=== PATIENT | female | born 1970 | race Caucasian/White ===

== ENCOUNTER 2020-02-11 11:42 | Emergency (ER) | payer OTHER, SELFPAY ==
--- NOTE | ~2020-02-11 | XR_ITS ---
EXAMINATION: XR foot LT min 3V, XR ankle LT min 3V DATE: 02/11/2020 12:52 INDICATION: Medial left foot pain post fall TECHNIQUE: 1. Anteroposterior, mortise, additional oblique and lateral view of the left ankle were obtained. 2. Dorsoplantar, two oblique and lateral views of the left foot were obtained. COMPARISON: 02/12/2009 FINDINGS: Alignment of the foot and ankle is normal. Small flake-like essentially nondisplaced dorsal capsular avulsion fracture of the navicula. No other fractures identified. Small chronic either degenerative o r heterotopic ossicle along the anterior margin of the tibial plafond and. No ankle joint effusion. M ild polyarticular osteoarthritis at the first metatarsophalangeal and several tarsal metatarsal and i nterphalangeal joints. Moderate-sized plantar calcaneal spur. Mild soft tissue swelling with increase d density dorsal to the talonavicular articulation. IMPRESSION: 1. Essentially nondisplaced small flake-like dorsal capsular avulsion fracture at the navicula. Reviewed, dictated and finalized at location A. IMPRESSION: 1. Essentially nondisplaced small flake-like dorsal capsular avulsion fracture at the navicula.
[2020-02-11 12:02] VITALS: BP 133/84; PULSE 94; RESP 16; TEMP 36.9; O2SAT 98
--- NOTE | 2020-02-11 12:20 | ED.LOWEXIN ---
HPI - Extremity Injury (Lower) General Chief Complaint: Extremity Injury, Lower Stated Complaint: Injury Left knee/ankle Time Seen by Provider: 02/11/20 12:47 Source: patient and RN notes reviewed Mode of arrival: ambulatory Limitations: no limitations History of Present Illness HPI Narrative: 49-year-old female presents with concern for left knee injury, ankle injury, foot injury. Reports prior to arrival she was carrying a basket of laundry down stairs when she missed a step and fell causing her injury. She denies any numbness, weakness. Reports pain is minimal at rest, increases to an 8 out of 10 with weightbearing. MD complaint: knee injury and ankle injury Related Data Home Medications Medication Instructions Recorded Confirmed Tumeric 02/11/20 Vitamin D 10,000 02/11/20 empagliflozin-metformin [Synjardy PO 02/11/20 XR] rosuvastatin mg 02/11/20 sumatriptan succinate mg PO 02/11/20 tamoxifen mg 02/11/20 Allergies Allergy/AdvReac Type Severity Reaction Status Date / Time benzonatate Allergy Mild Rash Verified 02/11/20 12:27 Review of Systems Review of Systems: Narrative: CONSTITUTIONAL: Denies malaise, chills, sweats, or fever. RESPIRATORY: Denies dyspnea. SKIN: Reports ankle swelling MUSCULOSKELETAL: Reports left knee pain, left foot pain. Reports minimal pain at rest, pain 8/10 with weightbearing NEUROLOGIC: Denies numbness, weakness. All systems reviewed & are unremarkable except as noted in HPI and below PMFSH Family History Family History (Updated 06/21/16 @ 23:19 by DOCTOR UNKNOWN) Mother Family history of diabetes mellitus in first degree relative Other Cerebrovascular accident Family history of coronary artery disease Family history of malignant neoplasm of male breast Family history of pancreatic cancer Hypertension Social History Social History Smoking status: Never smoker Alcohol intake: current Comments At time of signature, agree with nursing past medical, surgical, social and family history. There is no relevant family history pertinent to the presenting complaint Exam Narrative: Exam Narrative: GENERAL: Well-appearing, well-nourished, and in no acute distress. HEAD: Normocephalic, atraumatic. EYES: PERRLA, conjunctivae clear NECK: Supple. CHEST: Speaks in full sentences. No respiratory distress. HEART: Regular rate and rhythm. Normal and equal peripheral pulses. EXTREMITIES: Left knee, ankle, foot, digits of foot have normal strength and sensation, normal range of motion. Moderate lateral left ankle edema with small amount of ecchymosis. 5/5 strength with knee, ankle, digit flexion and extension. Normal sensation with sensitivity to light touch and pain. No open wounds, no skin tenting, no devitalized tissue or atrophy, no trophic changes, no ecchymosis, no obvious deformity, alignment normal, no point tenderness, nearby joints and structures intact. Distal pulses palpable and equal bilaterally, skin warm, dry, pink. Capillary refill less than 3 seconds. SKIN: Warm, dry, no rash. NEURO: Alert and oriented x3. PSYCH: Normal mood and affect Course Course Emergency Course: Patient is aware of diagnosis, understands and agrees to treatment plan. Anticipatory guidance given. Patient agrees to follow-up as directed and is aware of reasons to seek care at the emergency department. Portions of this record may have been created with voice recognition software Vital Signs Vital signs: Vital Signs Temperature 98.5 F 02/11/20 12:02 Pulse Rate 94 02/11/20 12:02 Respiratory Rate 16 02/11/20 12:02 Blood Pressure 133/84 02/11/20 12:02 Pulse Oximetry 98 02/11/20 12:02 Temperature 98.5 F 02/11/20 12:02 Pulse Rate 94 02/11/20 12:02 Respiratory Rate 16 02/11/20 12:02 Blood Pressure 133/84 02/11/20 12:02 Pulse Oximetry 98 02/11/20 12:02 Reviewed. Patient has been instructed to follow up with her primary care provider within the next
== END 2020-02-11 13:28 | disposition home or self-care (01) ==
PROVIDERS: Emergency Provider Nurse Practitioner; PCP Family Medicine
DX: S92.255A Nondisplaced fracture of navicular [scaphoid] of left foot, initial encounter for closed fracture (principal); W10.9XXA Fall (on) (from) unspecified stairs and steps, initial encounter; E78.00 Pure hypercholesterolemia, unspecified; E11.9 Type 2 diabetes mellitus without complications; Z85.3 Personal history of malignant neoplasm of breast
CPT/HCPCS: 73610; 73630; 99214; G0463

== ENCOUNTER 2020-06-26 07:52 | Outpatient (CLI) | payer OTHER, SELFPAY ==
--- NOTE | ~2020-06-26 | MM_ITS ---
EXAMINATION: MM screening katrina BI w raul HISTORY: Screening TECHNIQUE: Craniocaudal and mediolateral oblique 3-D tomosynthesis images were obtained and synthetic 2-D images were generated. CAD analysis was submitted and interpreted. COMPARISON: Comparison to multiple prior studies sequentially, with oldest reviewed study dated 07/2015. BREAST PARENCHYMAL COMPOSITION: Automated exposure control and iterative reconstruction technique wer e employed. FINDINGS: Stable architectural distortion lower outer quadrant of the left breast consistent with pre vious lumpectomy site. There is no evidence of suspicious mass, calcification, or architectural disto rtion to suggest malignancy in either breast. There has been no suspicious interval change. IMPRESSION: 1. No mammographic evidence of malignancy. 2. Recommend routine screening mammography in one year. BI-RADS Category 1: Negative Reviewed, dictated and finalized at location A.
== END 2020-06-26 07:53 | disposition home or self-care (01) ==
LOC: ANHIMG 07:55
PROVIDERS: PCP Family Medicine; Visit Provider Internal Medicine Medical Oncology
DX: Z12.31 Encounter for screening mammogram for malignant neoplasm of breast (principal)
CPT/HCPCS: 77063; 77067

== ENCOUNTER 2020-07-26 17:23 | Emergency (ER) | payer OTHER, SELFPAY ==
--- NOTE | ~2020-07-26 | XR_ITS ---
XR foot RT min 3V DATE: 07/26/2020 17:59 INDICATION: Right foot injury. Pain, particularly fifth toe. TECHNIQUE: 4 views COMPARISON: None FINDINGS: Plantar calcaneal enthesopathy. There is a linear virtually nondisplaced oblique fracture of the shaft of the proximal pharynx of the fifth digit. There is osteoarthritic change at the tarsal and tarsometatarsal and first metatarsophalangeal joints . IMPRESSION: Virtually nondisplaced oblique fracture of the shaft of the proximal phalanx of the fifth digit Polyarticular osteoarthritis Plantar calcaneal enthesopathy Reviewed, dictated and finalized at location A. IMPRESSION: Virtually nondisplaced oblique fracture of the shaft of the proxima l phalanx of the fifth digit Polyarticular osteoarthritis Plantar calcaneal enthesopathy
[2020-07-26 17:48] VITALS: BP 147/78; PULSE 106; RESP 18; TEMP 36.9; O2SAT 99
--- NOTE | 2020-07-26 18:07 | ED.LOWEXIN ---
HPI - Extremity Injury (Lower) General Chief Complaint: Extremity Injury, Lower Stated Complaint: right foot pinky toe History of Present Illness HPI Narrative: This is a 50-year-old female comes in complaining of right pinky toe pain. Approximately around 215 today patient was leaving the house she has a water cooler and she kicked it. Patient states that it feels like glass in her foot when she walks on it. When she is just sitting there patient denies any pain Related Data Home Medications Medication Instructions Recorded Confirmed Tumeric 1 tab-cap DAILY 02/11/20 07/26/20 Vitamin D 10,000 unit DAILY 02/11/20 07/26/20 empagliflozin-metformin [Synjardy 1 tablet PO DAILY 02/11/20 07/26/20 XR] rosuvastatin 20 mg DAILY 02/11/20 07/26/20 tamoxifen 20 mg DAILY 02/11/20 07/26/20 Allergies Allergy/AdvReac Type Severity Reaction Status Date / Time benzonatate Allergy Mild Rash Verified 07/26/20 17:41 Review of Systems Review of Systems: Narrative: CONSTITUTIONAL: Denies fever, chills, or sweats. EYES: Denies visual changes, redness, or discharge. ENT: Denies rhinorrhea, congestion, sore throat, or otalgia. CARDIOVASCULAR:Denies chest pain, palpitations, or edema. RESPIRATORY: Denies cough or dyspnea. GASTROINTESTINAL: Denies abdominal pain, nausea, vomiting, or diarrhea. GENITOURINARY: Denies dysuria or hematuria. SKIN:[Denies rash or itching. MUSCULOSKELETAL:Denies back pain, joint pain, or myalgia. Right foot and toe pain NEUROLOGIC: Denies headache, numbness, or weakness. PSYCHIATRIC:Denies anxiety or depression PMFSH Social History Social History Smoking status: Never smoker Alcohol intake: current Gender identity (if verbalized by the patient): Female Comments At time as signature, I have reviewed and agree with nursing past medical, social, surgical and family history. Please see nursing chart for further information. There is no relevant family history pertinent to the presenting complaint. Exam Narrative: Exam Narrative: GENERAL:Well-appearing, well-nourished, and in no acute distress. HEAD:Normocephalic, atraumatic. EYES: PERRLA and EOMI. ENT: Nares clear, no rhinorrhea or epistaxis. Mucous membranes moist. NECK: Supple. CHEST: Clear to auscultation. No respiratory distress. HEART: Regular rate and rhythm. No murmur heard. Normal peripheral pulses. ABDOMEN: Soft, nontender, nondistended, normal active bowel sounds. EXTREMITIES: Decreased range of motion due to pain. Slight foot edema erythema on the toe with some bruising starting. SKIN: Warm, dry, no rash. NEURO: No focal deficits. Alert and oriented x3. Course Course Emergency Course: X-ray reporting virtually nondisplaced oblique fracture of the shaft of the proximal phalanx of the fifth digit, polyarticular osteoarthritis, plantar calcaneal enthesopathy Vital Signs Vital signs: Vital Signs Temperature 98.5 F 07/26/20 17:48 Pulse Rate 106 H 07/26/20 17:48 Respiratory Rate 18 07/26/20 17:48 Blood Pressure 147/78 H 07/26/20 17:48 Pulse Oximetry 99 07/26/20 17:48 Temperature 98.5 F 07/26/20 17:48 Pulse Rate 106 H 07/26/20 17:48 Respiratory Rate 18 07/26/20 17:48 Blood Pressure 147/78 H 07/26/20 17:48 Pulse Oximetry 99 07/26/20 17:48 MDM - Extremity Injury (Lower) Differential Diagnosis Differential diagnosis: Likely acute internal derangement of knee, fracture of toe and ankle fracture Discharge Plan Discharge Clinical Impression: Fracture of toe Qualifiers: Encounter type: initial encounter Toe: lesser toe Fracture type: closed Phalanx: proximal Fracture alignment: nondisplaced Laterality: right Qualified Code(s): S92.514A - Nondisplaced fracture of proximal phalanx of right lesser toe(s), initial encounter for closed fracture Patient Disposition: Home, Self-Care Condition: Stable Instructions: Antibiotic Form, Toe Fracture (ED)
== END 2020-07-26 18:34 | disposition home or self-care (01) ==
PROVIDERS: Emergency Provider Nurse Practitioner Family; PCP Family Medicine
DX: S92.514A Nondisplaced fracture of proximal phalanx of right lesser toe(s), initial encounter for closed fracture (principal); W22.8XXA Striking against or struck by other objects, initial encounter; E78.00 Pure hypercholesterolemia, unspecified; E11.9 Type 2 diabetes mellitus without complications
CPT/HCPCS: 73630; 99214; G0463

== ENCOUNTER 2021-06-27 12:37 | Outpatient (CLI) | payer OTHER, SELFPAY ==
--- NOTE | ~2021-06-27 | CT_ITS ---
EXAMINATION: CT abdomen pelvis wo con DATE: 06/27/2021 12:53 INDICATION: Calculus of kidney, left flank pain, history of breast cancer TECHNIQUE: Computed tomography (CT) of the abdomen and pelvis was performed without intravenous contr ast. The dose-length product (DLP) was 767.58 mGy-cm. Automated exposure control and iterative recons truction technique were employed. COMPARISON: 04/07/2018 FINDINGS: The lung bases are clear. The heart size is normal. Changes in the left breast are consiste nt with history of left breast cancer treatment. Punctate calcifications in an otherwise normal splee n likely represent healed granulomatous disease. The liver, gallbladder, and adrenal glands are daysi l. A punctate calcification in the head of the pancreas is consistent with chronic pancreatitis. The right kidney is unremarkable. There is a 12 mm stone in the left renal pelvis with mild left hydronep hrosis. No pathologically enlarged abdominal or pelvic lymph nodes are identified. There is no free i ntraperitoneal gas or evidence of bowel obstruction. The appendix is normal. There is mild lumbar spo ndylosis. IMPRESSION: 1. 12 mm stone in the left renal pelvis with mild left hydronephrosis. Reviewed, dictated and finalized at location A.
== END 2021-06-27 12:38 ==
PROVIDERS: PCP Family Medicine; Visit Provider Family Medicine
DX: N20.0 Calculus of kidney (principal)
CPT/HCPCS: 74176

== ENCOUNTER 2021-10-04 14:15 | Outpatient (CLI) | payer OTHER, SELFPAY ==
--- NOTE | ~2021-10-04 | MM_ITS ---
EXAMINATION: MM screening katrina BI w raul HISTORY: Screening mammogram TECHNIQUE: Craniocaudal and mediolateral oblique 3-D tomosynthesis images were obtained and synthetic 2-D images were generated. CAD analysis was submitted and interpreted. COMPARISON: , , 08/29/2017 bilateral screening mammogram examinations BREAST PARENCHYMAL COMPOSITION: There are scattered areas of fibroglandular density. FINDINGS: There is stable chronic asymmetric density and spiculation and amorphous calcifications in the lower outer left breast, likely due to postoperative scarring from left partial mastectomy for br east cancer Otherwise there is no evidence of suspicious mass, calcification, or architectural distortion to sugg est malignancy in either breast. There has been no suspicious interval change. IMPRESSION: 1. Status post left partial mastectomy for breast cancer. No mammographic evidence of malignancy. 2. Recommend routine screening mammography in one year. BI-RADS Category 2: Benign finding(s). Reviewed, dictated and finalized at location A. NT SPECIALIST IMPRESSION: 1. Status post left partial mastectomy for breast cancer. No mammographic evide nce of malignancy. 2. Recommend routine screening mammography in one year. BI-RADS Category 2: Benign finding(s).
== END 2021-10-04 14:16 | disposition home or self-care (01) ==
LOC: ANHIMG 14:18
PROVIDERS: PCP Family Medicine; Visit Provider Family Medicine
DX: Z12.31 Encounter for screening mammogram for malignant neoplasm of breast (principal)
CPT/HCPCS: 77063; 77067

== ENCOUNTER 2021-12-20 00:33 | Day surgery (SDC) | payer OTHER, SELFPAY ==
[2021-12-20 06:40] VITALS: BP 141/77; PULSE 93; RESP 18; TEMP 36.1; O2SAT 99; BMI 35.2
[2021-12-20] MEDS: LACTATED RINGERS 1,000 ML 150 ML IV CONT (06:55)
[2021-12-20 06:57] LABS: Glucose Point of Care 123 mg/dl (65-105)
--- NOTE | 2021-12-20 07:17 | WPDANESEPPF ---
Anes - Initial Pre Proc Eval Procedure: Operation Date: 12/20/21 07:30 Proposed Procedures p Screening Colonoscopy - Bandar Vigil MD Date/Time: 12/20/21 07:17 Surgeon: Bandar Vigil MD Pre Op Diagnosis: neoplasm screening Patient Data Age: 51 Gender: F Height: 1.68 m Weight: 99 kg Last Vital Signs Temp 97 F L 12/20/21 06:40 Pulse 93 12/20/21 06:40 Resp 18 12/20/21 06:40 BP 141/77 H 12/20/21 06:40 Pulse Ox 99 12/20/21 06:40 Allergies Allergy/AdvReac Type Severity Reaction Status Date / Time benzonatate Allergy Mild Rash Verified 12/20/21 06:38 Home Medications Medication Instructions Recorded Confirmed Type Tumeric 1 tab-cap DAILY 02/11/20 12/07/21 History aspirin 81 mg tablet,delayed 81 mg PO DAILY 06/19/21 12/07/21 History release metformin 1,000 mg tablet 1,000 mg PO BID #270 tablet 11/20/21 12/07/21 Rx rosuvastatin 20 mg tablet 20 mg PO DAILY #90 tablet 11/20/21 12/07/21 Rx semaglutide 1 mg/dose (2 mg/1.5 1 mg SUBCUT WEEKLY #9 ml 12/04/21 12/07/21 Rx mL) subcutaneous pen injector sumatriptan succinate 100 mg tablet 100 mg PO ONCE PRN #9 tablet 12/04/21 12/07/21 Rx Laboratory Tests 12/20/21 06:54 POC Capillary Glucose 123 mg/dl H mg/dl (65-105) Patient hx anesthesia problems: none Family hx anesthesia problems: none Results Review: All pre-operative results and documents have been reviewed as part of the pre-operative evaluation. [facility] Past Medical History Medical History (Updated 10/04/21 @ 08:21 by Marcus Malik MD) Anemia Avulsion fracture of navicular bone of foot BMI 33.0-33.9,adult BMI 38.0-38.9,adult BMI over 35 Breast cancer Diabetes type 2, controlled Low vitamin D level MCL sprain of right knee Onychomycosis Primary osteoarthritis of both knees Renal calculi Screen for colon cancer Screening breast examination Vagina, candidiasis Family History Family History Mother Family history of diabetes mellitus in first degree relative Other Cerebrovascular accident Family history of coronary artery disease Family history of malignant neoplasm of male breast Family history of pancreatic cancer Hypertension Social History Social History Smoking status: Former smoker Tobacco type: cigarettes Alcohol intake: current Alcohol use details: Occasional use Substance use: never Substance use type: does not use Living arrangements: with family Gender identity (if verbalized by the patient): Female Spiritual care concerns: No Anes - Eval Final PreProcedure Day of Procedure 12/20/21 07:17 Patient weight: obese Heart: regular rate and rhythm Lungs: clear to auscultation Airway: Mallampati scale class II Neurological: alert and oriented Last oral intake: >/= 8 hours ASA classification: III Emergent: no Anesthetic plan: proceed Anesthesia type and monitoring: general GIVS and standard monitoring Results Review: All pre-operative results and documents have been reviewed as part of the pre-operative evaluation. Informed Consent: The patient's anesthetic plan and its attendant risks and benefits were discussed with the patient/family/POA. Questions were solicited and answers provided to the satisfaction of the patient/family/POA.
--- NOTE | 2021-12-20 07:48 | WPDGICN ---
Assessment and Plan Assessment and plan (1) Screen for colon cancer: Code(s): Z12.11 - Encounter for screening for malignant neoplasm of colon Status: Acute Assessment and Plan: Patient presents for screening colonoscopy. Appears to be at average risk for colon polyps. GI Consult Note Consult date/time: 12/20/21 07:48 HPI: Scarlett Celeste is a 51 year old female Presents for screening colonoscopy. Patient's current weight appetite bowel movements are normal. She denies abdominal pain. She has had no bleeding. Family history is noncontributory. Patient presents today for neoplasia screening. Review of Systems Review of Systems: All systems reviewed & are unremarkable except as noted in HPI and below PMFSH Past Medical History Medical History (Updated 10/04/21 @ 08:21 by Marcus Malik MD) Anemia Avulsion fracture of navicular bone of foot BMI 33.0-33.9,adult BMI 38.0-38.9,adult BMI over 35 Breast cancer Diabetes type 2, controlled Low vitamin D level MCL sprain of right knee Onychomycosis Primary osteoarthritis of both knees Renal calculi Screen for colon cancer Screening breast examination Vagina, candidiasis Family History Family History Mother Family history of diabetes mellitus in first degree relative Other Cerebrovascular accident Family history of coronary artery disease Family history of malignant neoplasm of male breast Family history of pancreatic cancer Hypertension Social History Social History Smoking status: Former smoker Tobacco type: cigarettes Alcohol intake: current Alcohol use details: Occasional use Substance use: never Substance use type: does not use Living arrangements: with family Gender identity (if verbalized by the patient): Female Spiritual care concerns: No Meds Home Medications and Allergies Home Medications Medication Instructions Recorded Confirmed Type Tumeric 1 tab-cap DAILY 02/11/20 12/07/21 History aspirin 81 mg tablet,delayed 81 mg PO DAILY 06/19/21 12/07/21 History release metformin 1,000 mg tablet 1,000 mg PO BID #270 tablet 11/20/21 12/07/21 Rx rosuvastatin 20 mg tablet 20 mg PO DAILY #90 tablet 11/20/21 12/07/21 Rx semaglutide 1 mg/dose (2 mg/1.5 1 mg SUBCUT WEEKLY #9 ml 12/04/21 12/07/21 Rx mL) subcutaneous pen injector sumatriptan succinate 100 mg tablet 100 mg PO ONCE PRN #9 tablet 12/04/21 12/07/21 Rx Allergies Allergy/AdvReac Type Severity Reaction Status Date / Time benzonatate Allergy Mild Rash Verified 12/20/21 06:38 Vital Signs Vital Signs - 24 hr 12/20/21 06:40 Temperature 97 F L Pulse Rate 93 Respiratory Rate 18 Blood Pressure 141/77 H Pulse Oximetry 99 Exam Narrative: Physical exam reveals patient be alert. Vital signs stable. HEENT exam is unremarkable. Patient is anicteric. Lungs are clear to auscultation and percussion. Heart is without murmur or extra sounds. Abdominal exam bowel sounds are present soft nontender with no organomegaly. Digital external rectal exam is normal.
[2021-12-20 07:50] VITALS: BP 95/54; PULSE 85; RESP 23; O2SAT 97
[2021-12-20 08:00] VITALS: BP 102/64; PULSE 72; RESP 17; O2SAT 99
[2021-12-20 08:10] VITALS: BP 107/76; PULSE 71; RESP 16; O2SAT 99
== END 2021-12-20 08:17 | disposition home or self-care (01) ==
PROVIDERS: PCP Family Medicine; Visit Provider Internal Medicine Gastroenterology
PROC: 0DJD8ZZ Inspection of Lower Intestinal Tract, Via Natural or Artificial Opening Endoscopic (ICD-10-PCS; CPT 45378; principal; 2021-12-20 07:30)
DX: Z12.11 Encounter for screening for malignant neoplasm of colon (principal); D12.5 Benign neoplasm of sigmoid colon; D64.9 Anemia, unspecified; E11.9 Type 2 diabetes mellitus without complications; Z87.891 Personal history of nicotine dependence; E66.9 Obesity, unspecified; Z68.35 Body mass index [BMI] 35.0-35.9, adult; Z79.84 Long term (current) use of oral hypoglycemic drugs; Z79.82 Long term (current) use of aspirin; Z79.899 Other long term (current) drug therapy
CPT/HCPCS: 45385; 82948; 88305; J2704; J7120

== ENCOUNTER 2022-02-09 10:24 | Outpatient (CLI) | payer OTHER, SELFPAY ==
--- NOTE | ~2022-02-09 | MR_ITS ---
EXAMINATION: MR brain IAC wo con EXAM DATE: 02/09/2022 11:26 INDICATION: keisha hearing loss x20yrs - right side worse, no trauma. TECHNIQUE: Multi-sequential, multiplanar MR images of the brain, brainstem, internal auditory canals were obtained without contrast. Whole brain sagittal T1, axial diffusion, gradient echo (T2*), T1, T 2, FLAIR sequences obtained. High resolution coronal 3-D FIESTA, coronal T1 FSE, axial T1 FSPGR of t he internal auditory canals. There is no prior study for comparison. FINDINGS: No evidence of mastoid or middle ear opacification. The 7th/8th cranial nerve complexes a re symmetric, normal in course and caliber. No cerebellopontine angle masses. Posterior fossa unrem arkable. There are no areas of restricted diffusion to suggest acute infarction. There is no acute hemorrhage seen on the T2*, a hemosiderin sensitive sequence. No intraparenchymal brain mass. The ventricles a re normal in size. There are no extra-axial collections. Flow voids are seen in the cerebral arteri es on the T2-weighted sequences consistent with their expected patency. The orbits are unremarkable. Soft tissue is unremarkable. IMPRESSION: Unremarkable brain/IAC examination.. Reviewed, dictated and finalized at location G.
== END 2022-02-09 10:25 ==
PROVIDERS: PCP Family Medicine; Visit Provider Family Medicine
DX: H91.93 Unspecified hearing loss, bilateral (principal)
CPT/HCPCS: 70551

== ENCOUNTER 2022-07-05 00:43 | Day surgery (SDC) | payer OTHER, SELFPAY ==
[2022-06-27 15:17] VITALS: BMI 37.3
--- NOTE | 2022-06-27 15:24 | PC.NURSE ---
Report to the Outpatient Waiting Room, entrance under the green pavilion located off [facility], at time _0815 on date __07/05/22. OR Time: ___1015_. - You and your visitor will be asked a series of questions to screen for COVID 19 for your protection. - Only one visitor is allowed at this time. - The patient visitor is requested to leave or wait in car when not with patient. - A mask is required within the hospital. Patients may have clear liquids (water, carbonated beverages, clear teas, apple juice) until 3 hours prior to surgery with a maximum of 20 ounces. - No food from midnight until time of surgery - Infants may have breast milk until 4 hours before surgery, infant formula 6 hours prior to surgery. - Children will be allowed to drink immediately following surgery. If applicable, please bring a bottle or sippy cup to assist with drinking. Juice, water, soda, and popsicles are readily available. For infants on formula, please bring formula the day of surgery. Pacifiers are allowed. Take the following medications with a SIP of water the morning of surgery: ___NONE Medications to discontinue per physician VITAMINS AND SUPPLIMENTS, ASK MD ABOUT ASPIRIN Date to take last dose Please no make-up, nail swedish, hairspray, perfume, deodorant, or body powder the day of surgery. No jewelry (including any body piercings) or valuables the day of surgery, leave them at home. Please take a shower or bath the night before, or the morning of, surgery with an antibacterial soap. Wear comfortable, loose fitting clothing. Children are encouraged to wear pajamas. - Jewelry must be removed prior to entering the operating room. Rings and piercings that are not removed may be cut off. - The hospital will not accept responsibility for valuables. - Please leave all valuables, including medications, at home the day of surgery. If you are going home after surgery, a licensed power screwdriver operator must drive you home. - NO public transportation without another adult. - We recommend that an adult stay with you for 24 hours following discharge. - We also recommend that you do not drive, make important decision, drink alcoholic beverages, or take any drugs that were not prescribed by your health care provider for at least 24 hours after your discharge time. For Pediatric surgeries, we recommend two adults accompany the child home (only one inside the building at this time). Follow any additional instructions given to you from your surgeon. If you or anyone in your household have experienced Covid symptoms in the past week, please notify your surgeon or the nurse liaison at the phone number below for possible testing. Telephone instructions given to ___PATIENT___and asked if any additional questions and then verbalized understanding. Patient advised to call surgeon office or pre surgery nurse liaison [phone] if any additional questions.
--- NOTE | 2022-07-03 07:05 | P.HP_ITS ---
H&P: HPI History of Present Illness Date/Time: 07/03/22 07:05 Chief Complaint: postmenopausal bleeding Narrative: some 52-year-old female not had a period for some time who experience vaginal bleeding. Risks and benefits of hysteroscopy and dilatation curettage reviewed in great detail. She agrees to proceed. She read the [employer] handout entitled hysteroscopy as well as dilatation and curettage [facility] Past Medical History Medical History Anemia Avulsion fracture of navicular bone of foot BMI 33.0-33.9,adult BMI 38.0-38.9,adult BMI over 35 Breast cancer Diabetes type 2, controlled Low vitamin D level MCL sprain of right knee Onychomycosis Primary osteoarthritis of both knees Renal calculi Screen for colon cancer Screening breast examination Vagina, candidiasis Family History Family History Mother Family history of diabetes mellitus in first degree relative Other Cerebrovascular accident Family history of coronary artery disease Family history of malignant neoplasm of male breast Family history of pancreatic cancer Hypertension Social History Social History Smoking packs per day: 1 Smoking cigarettes per day: 20.0 Years smoked: 15 Smoking pack-years: 15.00 Smoking status: Former smoker Tobacco type: cigarettes Alcohol intake: current Alcohol use details: 2-3 PER MONTH Substance use: never Substance use type: does not use Last use: 2009 Gender identity (if verbalized by the patient): Female Spiritual care concerns: No Meds Home Medications and Allergies Home Medications Medication Instructions Recorded Confirmed Type Tumeric 1 tab-cap DAILY 02/11/20 06/27/22 History aspirin 81 mg tablet,delayed 81 mg PO DAILY 06/19/21 06/27/22 History release (Adult Aspirin Regimen) rosuvastatin 20 mg tablet 20 mg PO DAILY #90 tabs 11/20/21 06/27/22 Rx semaglutide 1 mg/dose (2 mg/1.5 1 mg (0.75 mL) subcut WEEKLY #9 mL 03/07/22 06/27/22 Rx mL) subcutaneous pen injector cholecalciferol (vitamin D3) 25 25 mcg PO DAILY 05/13/22 06/27/22 History mcg (1,000 unit) capsule metformin 1,000 mg tablet 1,000 mg PO BID #270 tabs 06/02/22 06/27/22 Rx biotin 5 mg capsule 5 mg PO DAILY 06/27/22 06/27/22 History sumatriptan succinate 100 mg tablet 50 mg PO ONCE PRN migraine headache 06/27/22 06/27/22 History Allergies Allergy/AdvReac Type Severity Reaction Status Date / Time benzonatate Allergy Mild Rash Verified 06/27/22 15:13 Assessment and Plan Assessment and plan (1) Postmenopausal bleeding: Code(s): N95.0 - Postmenopausal bleeding Status: Acute Plan hysteroscopy/ dilatation and curettage
--- NOTE | 2022-07-05 06:30 | WPDHPUPDATE1 ---
History and Physical Update Update Date/Time: 07/05/22 06:30 History and Physical has been reviewed, including an updated exam of the patient. There are NO changes in the patient's condition. Risks, benefits, and alternatives have been discussed and questions answered. Patient agrees to proceed with procedure.
[2022-07-05] MEDS: ACETAMINOPHEN 500 MG TABLET 1000 MG PO (08:31)
[2022-07-05 08:41] VITALS: BP 131/73; PULSE 80; RESP 16; TEMP 36.6; O2SAT 98
[2022-07-05] MEDS: LACTATED RINGERS 1,000 ML 30 ML IV CONT (09:06)
[2022-07-05 09:10] LABS: Glucose Point of Care 119 mg/dl (65-105)
--- NOTE | 2022-07-05 09:36 | WPDANESEPPF ---
Anes - Initial Pre Proc Eval Procedure: Operation Date: 07/05/22 10:15 Proposed Procedures p Hysteroscopy Dilation and Curettage - Larry Garcia MD Date/Time: 07/05/22 09:36 Surgeon: Larry Garcia MD Pre Op Diagnosis: post menopausal bleeding, hx of breast cancer Patient Data Age: 52 Gender: F Height: 1.68 m Weight: 103.3 kg Last Vital Signs Temp 36.6 C 07/05/22 08:41 Pulse 80 07/05/22 08:41 Resp 16 07/05/22 08:41 BP 131/73 07/05/22 08:41 Pulse Ox 98 07/05/22 08:41 O2 Del Method Room Air 07/05/22 08:41 Allergies Allergy/AdvReac Type Severity Reaction Status Date / Time adhesive tape Allergy Mild Blister Verified 07/05/22 08:26 benzonatate Allergy Mild Rash Verified 07/05/22 08:26 povidone-iodine Allergy Mild Itching Verified 07/05/22 08:26 [From Betadine] Home Medications Medication Instructions Recorded Confirmed Type Tumeric 1 tab-cap DAILY 02/11/20 07/05/22 History aspirin 81 mg tablet,delayed 81 mg PO DAILY 06/19/21 07/05/22 History release (Adult Aspirin Regimen) rosuvastatin 20 mg tablet 20 mg PO DAILY #90 tabs 11/20/21 07/05/22 Rx semaglutide 1 mg/dose (2 mg/1.5 1 mg (0.75 mL) subcut WEEKLY #9 mL 03/07/22 07/05/22 Rx mL) subcutaneous pen injector cholecalciferol (vitamin D3) 25 25 mcg PO DAILY 05/13/22 07/05/22 History mcg (1,000 unit) capsule metformin 1,000 mg tablet 1,000 mg PO BID #270 tabs 06/02/22 07/05/22 Rx biotin 5 mg capsule 5 mg PO DAILY 06/27/22 07/05/22 History sumatriptan succinate 100 mg tablet 50 mg PO ONCE PRN migraine headache 06/27/22 07/05/22 History hydrocodone 5 mg-acetaminophen 325 1 tablet PO Q4H PRN pain #14 tabs 07/05/22 Rx mg tablet Laboratory Tests 07/05/22 09:08 POC Capillary Glucose 119 mg/dl H mg/dl (65-105) Patient hx anesthesia problems: none Family hx anesthesia problems: none Results Review: All pre-operative results and documents have been reviewed as part of the pre-operative evaluation. [facility] Past Medical History Medical History Anemia Avulsion fracture of navicular bone of foot BMI 33.0-33.9,adult BMI 38.0-38.9,adult BMI over 35 Breast cancer Diabetes type 2, controlled Low vitamin D level MCL sprain of right knee Onychomycosis Primary osteoarthritis of both knees Renal calculi Screen for colon cancer Screening breast examination Vagina, candidiasis Family History Family History Mother Family history of diabetes mellitus in first degree relative Other Cerebrovascular accident Family history of coronary artery disease Family history of malignant neoplasm of male breast Family history of pancreatic cancer Hypertension Social History Social History Smoking packs per day: 1 Smoking cigarettes per day: 20.0 Years smoked: 15 Smoking pack-years: 15.00 Smoking status: Former smoker Tobacco type: cigarettes Alcohol intake: current Alcohol use details: 2-3 PER MONTH Substance use: never Substance use type: does not use Last use: 2009 Living arrangements: with family Gender identity (if verbalized by the patient): Female Spiritual care concerns: No Anes - Eval Final PreProcedure Day of Procedure 07/05/22 09:36 Patient weight: obese Heart: regular rate and rhythm Lungs: decreased breath sounds Airway: Mallampati scale class II Neurological: alert and oriented Last oral intake: >/= 8 hours ASA classification: III Emergent: no Anesthetic plan: proceed Anesthesia type and monitoring: general GIVS and standard monitoring Results Review: All pre-operative results and documents have been reviewed as part of the pre-operative evaluation. Informed Consent: The patient's anesthetic plan and its attendant risks and benefits were discussed with the patient/fami
[2022-07-05] MEDS: KETOROLAC 30 MG/ML VIAL (*BKC) IV PUSH (10:50)
--- NOTE | 2022-07-05 10:54 | P.OP_ITS ---
Procedure Note - Detailed Date of Procedure 07/05/22 Pre-op Diagnosis post menopausal bleeding, hx of breast cancer Post-op Diagnosis Same Procedure Performed Hysteroscopy/dilatation curettage Surgeon Larry Garcia MD Anesthesia MAC and Local Indications This is a 52-year-old female who had some spotty bleeding. She has a history of breast cancer. Findings Benign noncancerous appearing endometrium. Description of Procedure Patient was prepped draped in the normal sterile fashion placed in the dorsal lithotomy position. Under excellent IV sedation weighted speculum placed in posterior fornix of vagina. Anterior lip of the cervix grasped with a single- tooth tenaculum. The cervix was instilled with xylocaine anesthesia at2.5cc at 2, 4, 8, 10:00 a.m. of the cervix. Uterus sounded to 7cm. Serial dilatation with fragmented dilators performed. This was followed by passage of the 5mm visualizing hysteroscope. Normal benign-appearing endometrium was seen consistent with her postmenopausal state. The uterus was scraped over the entire 360? until a good grating sound was heard. When no further tissue could be removed the instruments were withdrawn. The patient went to recovery in satisfactory condition. All sponge, needle, instrument counts were correct. There were no immediate complication ends Estimated Blood Loss 5 Drains No Packing No Pathology Yes Complications No immediate complications Condition Stable Disposition PACU
[2022-07-05 10:58] VITALS: BP 121/74; PULSE 75; RESP 16; O2SAT 92
[2022-07-05 11:07] LABS: Glucose Point of Care 115 mg/dl (65-105)
[2022-07-05 11:10] VITALS: BP 94/43; PULSE 70; RESP 16
[2022-07-05 11:25] VITALS: BP 139/83; PULSE 65; RESP 16; O2SAT 95
[2022-07-05 11:50] VITALS: BP 147/84; PULSE 72; RESP 16
== END 2022-07-05 12:00 | disposition home or self-care (01) ==
PROVIDERS: PCP Family Medicine; Visit Provider Obstetrics & Gynecology
PROC: 0U5B8ZZ Destruction of Endometrium, Via Natural or Artificial Opening Endoscopic (ICD-10-PCS; CPT 58563; principal; 2022-07-05 10:15)
DX: N95.0 Postmenopausal bleeding (principal); Z79.82 Long term (current) use of aspirin; Z79.84 Long term (current) use of oral hypoglycemic drugs; Z87.891 Personal history of nicotine dependence; D64.9 Anemia, unspecified; E55.9 Vitamin D deficiency, unspecified; E11.9 Type 2 diabetes mellitus without complications; B35.1 Tinea unguium; M19.90 Unspecified osteoarthritis, unspecified site; Z85.3 Personal history of malignant neoplasm of breast; E66.9 Obesity, unspecified; Z68.36 Body mass index [BMI] 36.0-36.9, adult
CPT/HCPCS: 58558; 82948; 88305; A9270; J1100; J1885; J2250; J2405; J2704; J3010; J7030; J7120

== ENCOUNTER 2022-12-26 17:34 | Outpatient (CLI) | payer OTHER, SELFPAY ==
--- NOTE | ~2022-12-26 | MM_ITS ---
EXAMINATION: MM screening katrina BI w raul HISTORY: Screening TECHNIQUE: Craniocaudal and mediolateral oblique 3-D tomosynthesis images were obtained and synthetic 2-D images were generated. CAD analysis was submitted and interpreted. COMPARISON: Comparison to multiple prior studies sequentially, with oldest reviewed study dated 03/05. BREAST PARENCHYMAL COMPOSITION: There are scattered areas of fibroglandular density. FINDINGS: There is no evidence of suspicious mass, calcification, or architectural distortion to sugg est malignancy in either breast. There has been no suspicious interval change. IMPRESSION: 1. No mammographic evidence of malignancy. 2. Recommend routine screening mammography in one year. BI-RADS Category 1: Negative Reviewed, dictated and finalized at location A. UNITY ENGAGEMENT MANAGER
== END 2022-12-26 17:35 | disposition home or self-care (01) ==
PROVIDERS: PCP Family Medicine; Visit Provider Obstetrics & Gynecology
DX: Z12.31 Encounter for screening mammogram for malignant neoplasm of breast (principal)
CPT/HCPCS: 77063; 77067

== ENCOUNTER 2023-12-25 12:35 | Emergency (ER) | payer OTHER, SELFPAY ==
--- NOTE | 2023-12-25 12:40 | ED.LOWEXIN ---
HPI - Extremity Injury (Lower) General Chief Complaint: Wound/Laceration Stated Complaint: right leg injury Time Seen by Provider: 12/25/23 12:38 Source: patient Mode of arrival: ambulatory Limitations: no limitations History of Present Illness HPI Narrative: Patient is a 53-year-old female who presents with wound to right castillo. Patient states she ran into metal foot rest and noticed blood through her jeans. Denies any numbness, tingling or weakness to the rest of the extremity. Unsure of last tetanus shot but states it was over 7 years ago. Related Data Home Medications Medication Instructions Recorded Confirmed aspirin 81 mg tablet,delayed 81 mg PO DAILY 06/19/21 12/25/23 release (Adult Aspirin Regimen) cholecalciferol (vitamin D3) 25 25 mcg PO DAILY 05/13/22 12/25/23 mcg (1,000 unit) capsule biotin 5 mg capsule 5 mg PO DAILY 06/27/22 12/25/23 Allergies Allergy/AdvReac Type Severity Reaction Status Date / Time adhesive tape Allergy Mild Blister Verified 12/25/23 13:00 benzonatate Allergy Mild Rash Verified 12/25/23 13:00 povidone-iodine Allergy Mild Itching Verified 12/25/23 13:00 [From Betadine] empagliflozin AdvReac Intermediate yeast Verified 12/25/23 13:00 [From Jardiance] infection metformin AdvReac Intermediate Diarrhea Verified 12/25/23 13:00 Review of Systems Review of Systems: All systems reviewed & are unremarkable except as noted in HPI and below Constitutional: Constitutional: Denies body ache(s), Denies chills, Denies fatigue, Denies fever(s), Denies headache(s), Denies malaise and Denies weakness Eyes: Eyes: Denies blurry vision, Denies irritation and Denies loss of vision ENT: Denies otalgia, Denies headache(s), Denies nasal discharge, Denies sinus pain and Denies sore throat Cardiovascular: Cardiovascular: Denies chest pain, Denies irregular heart rhythm and Denies dyspnea Respiratory: Respiratory: Denies dyspnea Gastrointestinal: Gastrointestinal: Denies abdominal pain, Denies melena, Denies hematochezia, Denies diarrhea, Denies nausea and Denies vomiting Musculoskeletal: Musculoskeletal: Denies back pain, Denies myalgias and Denies arthralgias Integumentary/Breasts: Skin/Breast: Denies pruritus, Denies rash and Reports wounds Neurologic: Denies headache(s), Denies loss of vision and Denies weakness Psychiatric: Psychiatric: Reports no additional psychiatric complaints Endocrine: Endocrine: Denies fatigue PMFSH Past Medical History Medical History Anemia Avulsion fracture of navicular bone of foot BMI 33.0-33.9,adult BMI 37.0-37.9, adult BMI 38.0-38.9,adult BMI 40.0-44.9, adult BMI over 35 Breast cancer Diabetes type 2, controlled Low vitamin D level MCL sprain of right knee Onychomycosis Port-A-Cath in place Primary osteoarthritis of both knees Renal calculi Screen for colon cancer Screening breast examination Tonsillectomy planned Vagina, candidiasis Surgical History Surgical History H/O breast biopsy H/O foot surgery H/O lithotripsy History of endometrial ablation History of removal of Port-a-Cath Family History Family History Mother Family history of diabetes mellitus in first degree relative Diabetes mellitus Hypertension Hyperlipidemia Father Pancreatic cancer Other Cerebrovascular accident Family history of coronary artery disease Family history of malignant neoplasm of male breast Family history of pancreatic cancer Social History Social History Smoking packs per day: 1 Smoking cigarettes per day: 20.0 Years smoked: 15 Smoking pack-years: 15.00 Smoking status: Former smoker Tobacco type: cigarettes Second hand tobacco smoke exposure: No Alcohol intake: current Alcohol use details:
[2023-12-25 12:55] VITALS: BP 151/87; PULSE 101; RESP 16; TEMP 37.1; O2SAT 96
[2023-12-25] MEDS: TETANUS,DIPHTHERIA,AC PERTUSSIS ADULT (0.5 ML) BOOSTRIX IM (13:41)
== END 2023-12-25 14:09 | disposition home or self-care (01) ==
PROVIDERS: Emergency Provider Nurse Practitioner Family; PCP Family Medicine
DX: S81.811A Laceration without foreign body, right lower leg, initial encounter (principal); W22.8XXA Striking against or struck by other objects, initial encounter; Z23 Encounter for immunization; F17.210 Nicotine dependence, cigarettes, uncomplicated; E11.9 Type 2 diabetes mellitus without complications; M17.0 Bilateral primary osteoarthritis of knee; Z85.3 Personal history of malignant neoplasm of breast; D64.9 Anemia, unspecified; E55.9 Vitamin D deficiency, unspecified
CPT/HCPCS: 90471; 90715; 99213; G0463

== ENCOUNTER 2024-01-21 08:03 | Outpatient (CLI) | payer OTHER, SELFPAY ==
--- NOTE | ~2024-01-21 | MM_ITS ---
EXAMINATION: MM screening katrina BI w raul HISTORY: Screening TECHNIQUE: Craniocaudal and mediolateral oblique 3-D tomosynthesis images were obtained and synthetic 2-D images were generated. CAD analysis was submitted and interpreted. COMPARISON: Comparison to multiple prior studies sequentially, with oldest reviewed study dated 03/21. BREAST PARENCHYMAL COMPOSITION: Not dense: There are scattered areas of fibroglandular density. FINDINGS: There is no evidence of suspicious mass, calcification, or architectural distortion to sugg est malignancy in either breast. There has been no suspicious interval change. IMPRESSION: 1. No mammographic evidence of malignancy. 2. Recommend routine screening mammography in one year. BI-RADS Category 1: Negative Reviewed, dictated and finalized at location A. TIVE CONSULTANT
== END 2024-01-21 08:04 | disposition home or self-care (01) ==
LOC: ANHIMG 08:05
PROVIDERS: PCP Family Medicine; Visit Provider Obstetrics & Gynecology
DX: Z12.31 Encounter for screening mammogram for malignant neoplasm of breast (principal)
CPT/HCPCS: 77063; 77067

== ENCOUNTER 2025-01-27 15:36 | Outpatient (CLI) | payer BC, SELFPAY ==
--- NOTE | ~2025-01-27 | MM_ITS ---
EXAMINATION: MM screening katrina BI w raul HISTORY: Screening. Personal history of left-sided breast cancer (diagnosed in ), now post l umpectomy, chemotherapy and radiation therapy. TECHNIQUE: Craniocaudal and mediolateral oblique 3-D tomosynthesis images were obtained and synthetic 2-D images were generated. CAD analysis was submitted and interpreted. COMPARISON: 01/21/2024 dating back to 06/26/2020 BREAST PARENCHYMAL COMPOSITION: There are scattered areas of fibroglandular density. FINDINGS: Postoperative change within the left breast and left axilla. Punctate calcifications detected bilaterally, stable and benign in appearance, and dermal in origin. Stable parenchymal pattern without suspicious microcalcifications, architectural distortion, discrete masses or significant asymmetry. IMPRESSION: 1. No mammographic/tomographic evidence of malignancy. 2. Recommend routine screening mammography in one year. BI-RADS Category 2: Benign finding(s). Reviewed, dictated and finalized at location A. [facility]
--- OUTSIDE RECORDS SUMMARY | 2025-01-27 16:43 | XMS_ITS | Clinical Summary ---
Author Organization [facility] Address [address] [place] [address] Care Team Providers Care Consumer Product Advisor Name Role Phone Marcus Malik MD Primary Care Provider [phone] Source Comments [facility],non-owned Affiliates and Associated Physician Practices is amultiple site organization consisting of ambulatory clinics and hospital sitesin [place], [place]. This disclosure is being madepursuant to the Care Everywhere program and may not contain all information available regarding this patient. Last updated 18.[facility] [employer] Allergies No known active allergies Social History Tobacco Use Types Packs/Day Years Used Date Smoking Tobacco: Never Assessed Sex and Gender Information Value Date Recorded Sex Assigned at Not on file Gender Identity Not on file Sexual Orientation Not on file Plan of Treatment Health Maintenance Due Date Last Done Comments COLOGUARD (AGES 45-75) - COL ON CA SCREENING 1970 COLON MONITORING 1970 COLONOSCOPY - COLON CA SCREENING 1970 CT COLONOGRAPHY - COLON CA SCREENING 1970 Colorectal Cancer Screening 1970 FIT - COLON CA SCREENING 1970 FLEX SIG - COLON CA SCREENING 1970 LIPID TESTING 1970 MAMMOGRAM 1970 PAP SMEAR 1970 HIV SCREENING 1985 HEPATITIS C SCREENING 04/13/1988 DTAP/TDAP/TD VACCINES (1 - Tdap) 1989 HEPATITIS B VACCINE (1 of 3 - 19+ 3-dose series) 1989 PNEUMOCOCCAL VACCINE 50+ (1 of 1 - PCV) 2020 ZOSTER VACCINE (1 of 2) 2020 COVID-19 VACCINE (1 - 2023-2 5 season) 2024 INFLUENZA VACCINE (#1) 2024 DEPRESSION SCREENING 11/24/2024 HIB VACCINE Aged Out No longer eligi ble based on patient's age to complete this topic HPV VACCINE Aged Out No longer eligi ble based on patient's age to complete this topic MENINGOCOCCAL (Group B) VACCINE Aged Out No longer eligible based on patient's age to complete this topic MENINGOCOCCAL VACCINE Aged Out No lenard tj eligible based on patient's age to complete this topic PNEUMOCOCCAL VACCINE Aged Out No long er eligible based on patient's age to complete this topic Care Teams Consumer Product Advisor Relationship Specialty Start Date End Date Marcus Malik MD [address] [place] [address] PCP - General 12/21/21
--- OUTSIDE RECORDS SUMMARY | 2025-01-27 16:43 | XMS_ITS | Clinical Summary ---
Author Organization [facility] Address [address] [place] [address] Care Team Providers Care Title Abstractor Name Role Phone Marcus Malik MD Primary Care Provider [phone] Allergies Active Allergy Reactions Criticality Noted Date Comments Povidone Iodine Rash Low 07/11/2021 Medications Semaglutide (OZEMPIC, 1 MG/DOSE, SC) Inject 1 mg into the skin weekly. friday Active metFORMIN 1000 MG tablet Take 1,000 mg by mouth 2 (two) times daily with meals. Active rosuvastatin 20 MG tablet Take 20 mg by mouth nightly at bedtime. Active biotin 300 MCG Tab Take 1 tablet by mouth daily. 500 mcg Active SUMAtriptan 50 MG tablet Take 50 mg by mouth 2 (two) times daily as needed for Migraine. Max of 4 tablets (200 mg) in 24 hours. Active aspirin 81 MG chewable tabletIndicatio ns:Calcium kidney stone Chew 1 tablet (81 mg total) by mouth daily. Resume in 1 week 30 tablet 07/17/2021 Active ibuprofen 200 MG tabletIndicatio ns:Calcium kidney stone Take 1 tablet (200 mg total) by mouth every 6 (six) hours as needed for Pain. Resume in 1 week 2 tablet 1 07/17/2021 Active Active Problems Problem Noted Date Diagnosed Date Renal stone 07/17/2021 Immunizations Name Administration Dates Next Due PFIZER COVID-19 (ORIGINAL FO RMULATION, PURPLE CAP) mRNA, LNP-S, PF, 30 MCG/0.3 ML DOSE 01/26/2021,01/05/2021 Family History Medical History Relation Comments Cancer Father pancreatic Hyperlipidemia Maternal Grandfather Hypertension Maternal Grandfather Cancer Maternal Grandmother breast cjd Maternal Grandmother Diabetes Mother type 2 Hyperlipidemia Mother Hypertension Mother Relation Status Comments Father Maternal Grandfather Maternal Grandmother Mother Alive Social History Tobacco Use Types Packs/Day Years Used Date Smoking Tobacco: Former Cigarettes 1 15 0 07/11/1995 - 07/11/2010 Smokeless Tobacco: Never Alcohol Use Standard Drinks/Week Comments Yes 1 (1 standard drink = 0.6 oz pur e alcohol) 1 or less Comments No Sex and Gender Information Value Date Recorded Sex Assigned at Not on file Legal Sex Female 2:14 PM CDT Gender Identity Not on file Sexual Orientation Not on file Last Filed Vital Signs Vital Sign Reading Time Taken Comments Blood Pressure 143/85 07/17/2021 11:15 AM CDT Pulse 74 07/17/2021 11:15 AM CDT Temperature 36.2 C (97.1 F) 07/17/2021 11:15 AM CDT Respiratory Rate 15 07/17/2021 11:15 AM CDT Oxygen Saturation 97% 07/17/2021 11:15 AM CDT Inhaled Oxygen Concentration - - Weight 96.9 kg (213 lb 10 oz) 07/17/2021 8:04 AM CDT Height 167.6 cm (5' 6 ) 07/17/2021 8:04 AM CDT Body Mass Index 34.48 07/17/2021 8:04 AM CDT Plan of Treatment Health Maintenance Due Date Last Done Comments Cervical Cancer Screening Pap Smear (Age 30 to 64) Every 3 Years 1970 Colorectal Cancer Screening Colonoscopy (10 Years) 1970 Annual Physical 1973 Hepatitis C 1988 DTaP, Tdap and Td Vaccines (1 - Tdap) 1989 Hepatitis B Vaccines (1 of 3 - 19+ 3-dose series) 1989 Cervical Cancer Screening Pap with HPV Testing (Age 30 to 64) Every 5 Years 2000 Cervical Cancer Screening with HPV 2000 Mammogram Screening 2010 Zoster Vaccines (1 of 2) 2020 COVID-19 Vaccine (3 - season) 2024 01/26/2021, 01/05/2021 Influenza Adult (#1) 2024 09/19/2020, 08/24/2018, 11/21/2017, Additional history exists Meningococcal B Vaccine Aged Out No l onger eligible based on patient's age to complete this topic Meningococcal Vaccine Aged Out No lenard tj eligible based on patient's age to complete this topic Pneumococcal Vaccine: Pediatrics (0 to 5 Years) and At-Risk Patients (6 to 64 Years) Aged Out No longer eligible based on patient's age to complete this topic RSV Immunizations Under 20 Months Aged Out No longer eligible based on patient's age to complete this topic Medical Devices Implanted Type Area Survey Research Teacher Device Identifier Shelf Expiration Date Model / Serial / Lot Titanium Clip,2 Epd Dosimeter Breast Insurance GENERIC - COMMERCIAL Care Teams Title Abstractor Relationship Specialty Start Date End Date Marcus Malik MD [address] [address] PCP - General FAMILY PRACTICE 07/11/21
--- OUTSIDE RECORDS SUMMARY | 2025-01-27 16:43 | XMS_ITS | Clinical Summary ---
Author Organization [facility] Address [address] [place] [address] Phone Care Team Providers Care Regional Flatbed Truck Driver Name Role Phone Jamshid Cornejo DO Unavailable [phone] Marcus Malik MD Primary Care Provider [phone] Allergies Active Allergy Reactions Criticality Noted Date Comments Benzonatate Unknown 10/29/2018 Povidone-Iodine Unknown 10/29/2018 Medications ONETOUCH ULTRA BLUE TEST STRIP strip Active SYNJARDY XR 12.5-1,000 mg tablet, IR & ER, biphasic 24hr Active FLUARIX QUAD 5015-1720, PF, 60 mcg (15 mcg x 4)/0.5 mL syringe ADM 0.5ML IM UTD 0 018 Active rosuvastatin (CRESTOR) 20 mg tablet 018 Active SUMAtriptan (IMITREX) 100 mg tabletIndicat ions:Migraine Active cholecalcifer ol (VITAMIN D-3) 5,000 unit tablet 11/21/2017Vitamin d, po solid 5000 unit TabletPOdailypt takes 7500unit dailyCurrent Medication Active metFORMIN (GLUCOPHAGE) 500 mg tablet 11/21/2017Metformin hcl, po solid 500 mg TabletPOdailyCurrent Medication Active MAGNESIUM ORAL 11/21/2017Magnesium, po solid 200 mg TabletPOdailyCurrent Medication Active SUMAtriptan (IMITREX) 50 mg tabletIndicat ions:Migraine 11/21/2017Imitrex, po solid 50 mg TabletPOas directedCurrent Medication Active IBUPROFEN ORAL 11/21/2017Ibuprofen, po solid 800 mg [id number] PRN painCurrent Medication Active biotin 5 mg capsule 11/21/2017Biotin, po solid 5 mg CapsulePOdailyCurrent Medication Active tamoxifen (NOLVADEX) 20 mg tablet Take 1 tablet (20 mg total) by mouth daily 30 tablet 11 019 Active Active Problems Problem Noted Date Diagnosed Date Malignant neoplasm of upper- outer quadrant of left breast in female, estrogen receptor positive 11/07/2018 Cancer Staging:Clinical stage from 11/07/2009:Stage IA(cT1c, cN0(sn), cM0, G3, ER: Positive, SC: Positive, HER2: Positive) - Signed by Jamshid Cornejo DO on 11/07/2018 Immunizations Immunization Administration Dates Next Due Influenza, Quadrivalent, Iesha l Culture-based MDCK, Antibiotic Free, Intramuscular 09/19/2020 Influenza, Quadrivalent, Spl it, Preservative Free, Intramuscular 08/24/2018 Influenza, Unspecified 08/24/2018,2016,11/09/2015,05/02,11/01/2013 Surgical History Surgery Date Site/Laterality Comments BREAST BIOPSY BREAST LUMPECTOMY Medical History Medical History Date Comments Breast cancer (HCC) Diabetes mellitus (HCC) Gastric reflux Hypercholesteremia Kidney stone Migraines Osteoarthritis Family History Medical History Relation Name Comments Arthritis Father Cancer Father Pancreatic cancer Father Arthritis Mother Diabetes Mother Heart disease Mother Breast cancer Paternal Grandmother Relation Name Status Comments Father Mother Paternal Grandmother Social History Tobacco Use Types Packs/Day Years Used Date Smoking Tobacco: Former Cigarettes Q uit: 2009 Smokeless Tobacco: Never Alcohol Use Standard Drinks/Week Comments Yes 0 (1 standard drink = 0.6 oz pur e alcohol) occasionally Personal Safety Answer Date Recorded Getting School Help Needed Not on file 02/06 Comments Unknown Sex and Gender Information Value Date Recorded Sex Assigned at Not on file Legal Sex Female 3:26 AM TUBER MACHINE CUTTER Gender Identity Not on file Sexual Orientation Not on file Obstetrics History Last Filed Vital Signs Vital Sign Reading Time Taken Comments Blood Pressure 138/89 10/12/2020 1:44 PM TUBER MACHINE CUTTER Pulse 112 10/12/2020 1:44 PM TUBER MACHINE CUTTER Temperature 36.7 C (98 F) 10/12/2020 1:44 PM TUBER MACHINE CUTTER Respiratory Rate 20 10/12/2020 1:44 PM TUBER MACHINE CUTTER Oxygen Saturation 97% 10/12/2020 1:44 PM TUBER MACHINE CUTTER Inhaled Oxygen Concentration - - Weight 106.1 kg (234 lb) 10/12/2020 1:44 PM TUBER MACHINE CUTTER with shoes Height 167.6 cm (5' 6 ) 10/12/2020 1:44 PM TUBER MACHINE CUTTER Body Mass Index 37.77 10/12/2020 1:44 PM TUBER MACHINE CUTTER Plan of Treatment Not on file Insurance AETNA AETNA SIG [id number] [employer] Care Teams Regional Flatbed Truck Driver Relationship Specialty Start Date End Date Marcus Malik MD [address] [place] [id number] PCP - General Family Medicine 10/29/18 Jamshid Cornejo DO [address] [place] [id number] Medical Oncologist/Helpdesk Specialist Hematology and Oncology 10/28/18
--- OUTSIDE RECORDS SUMMARY | 2025-01-27 16:43 | XMS_ITS | Referral Summary ---
Author Organization [facility] Address [address] [place] [address] Care Team Providers Care Paint Trimmer Pipe Bowls Name Role Phone Marcus Malik MD Primary Care Provider [phone] Source Comments [facility],non-owned Affiliates and Associated Physician Practices is amultiple site organization consisting of ambulatory clinics and hospital sitesin [place], [place], [place] and [place]. This disclosure is being madepursuant to the Care Everywhere program and may not contain all information available regarding this patient. Last updated 18.[facility] [employer] Allergies No known active allergies Social History Tobacco Use Types Packs/Day Years Used Date Smoking Tobacco: Never Assessed Sex and Gender Information Value Date Recorded Sex Assigned at Not on file Gender Identity Not on file Sexual Orientation Not on file Plan of Treatment Not on file Care Teams Paint Trimmer Pipe Bowls Relationship Specialty Start Date End Date Marcus Malik MD [address] [place] [id number] PCP - General 12/21/21
--- OUTSIDE RECORDS SUMMARY | 2025-01-27 16:43 | XMS_ITS | Patient Health Summary ---
Author Organization [facility] Address [address] [place] [address] Care Team Providers Care Oracle Adf Developer Name Role Phone Marcus Malik MD Primary Care Provider [phone] Note from [facility],non-owned Affiliates and Associated Physician Practices is amultiple site organization consisting of ambulatory clinics and hospital sitesin [place], [place], [place] and [place]. This disclosure is being madepursuant to the Care Everywhere program and may not contain all information available regarding this patient. Last updated 18.[facility] Allergies No known active allergies Social History Tobacco Use Types Packs/Day Years Used Date Smoking Tobacco: Never Assessed Sex and Gender Information Value Date Recorded Sex Assigned at Not on file Gender Identity Not on file Sexual Orientation Not on file Procedures * MRI BREAST BILAT WWO CONTRAST(Performed 09/08/2009) Performed for Malignant Neoplasm of Breast (Female), Unspecified Site (HCC) Results * MRI BREAST W/WO CONTRAST BILAT (09/08/2009 3:07 PM CDT) Anatomical Region Laterality Modality Breast Bilateral Magnetic Resonan ce 09/08/2009 4:47 PM CDT Narrative 09/08/2009 6:08 PM CDT Examination: MRI breast bilateral, with and without contrast. Indication for examination: Breast cancer. Recent biopsy. Precontrast T1 and T2-weighted images with sequential contrast-enhanced T1-weighted images of the right and left breast are obtained. Multiplanar reconstructions as well as three-dimensional reconstructions were performed. Computer detection analysis is performed with MadeCloseaCAD. 20 cc gadolinium contrast were used. Comparison is made with previous outside breast imaging studies. There is extensive postsurgical change with a fluid-filled cavity in the inferolateral aspect of the left breast. There is metallic artifact posteriorly and superiorly, at the margin of this presumably from surgical clip placement. There is a small area of irregular contrast enhancement at the inferior margin of this, at and just beneath the skin. These findings are all presumably postsurgical in etiology. No dominant focal enhancing mass is identified within the left breast. There are small cysts bilaterally. No focal enhancing mass is identified on the right side. There are no abnormally enlarged or suspicious enhancing lymph nodes. No other focal findings. Conclusion: Large irregular fluid-filled cavity inferolateral left breast, with metallic clip artifact posteriorly and with a small focus of increased contrast enhancement at the inferior margin beneath the skin surface. These findings are all presumably postsurgical in etiology. No focal enhancing neoplastic mass identified on either side of the basis of this examination. No suspicious lymph nodes identified on either side. Procedure Note Julian Campos MD - 09/08/2009 Examination: MRI breast bilateral, with and without contrast. Indication for examination: Breast cancer. Recent biopsy. Precontrast T1 and T2-weighted images with sequential contrast-enhanced T1-weighted images of the right and left breast are obtained. Multiplanar reconstructions as well as three-dimensional reconstructions were performed. Computer detection analysis is performed with Made[employer]CAD. 20 cc gadolinium contrast were used. Comparison is made with previous outside breast imaging studies. There is extensive postsurgical change with a fluid-filled cavity in the inferolateral aspect of the left breast. There is metallic artifact posteriorly and superiorly, at the margin of this presumably from surgical clip placement. There is a small area of irregular contrast enhancement at the inferior margin of this, at and just beneath the skin. These findings are all presumably postsurgical in etiology. No dominant focal enhancing mass is identified within the left breast. There are small cysts bilaterally. No focal enhancing mass is identified on the right side. There are no abnormally enlarged or suspicious enhancing lymph nodes. No other focal findings. Conclusion: Large irregular fluid-filled cavity inferolateral left breast, with metallic clip artifact posteriorly and with a small focus of increased contrast enhancement at the inferior margin beneath the skin surface. These findings are all presumably postsurgical in etiology. No focal enhancing neoplastic mass identified on either side of the basis of this examination. No suspicious lymph nodes identified on either side. Signed On Paper Physician MR ORDERABLES Care Teams Oracle Adf Developer Relationship Specialty Start Date End Date Marcus Malik MD [address] [place] [address] PCP - General 12/21/21
--- OUTSIDE RECORDS SUMMARY | 2025-01-27 16:43 | XMS_ITS | Referral Summary ---
Author Organization [facility] Address [address] [place] [address] Phone Care Team Providers Care Warp Bleaching Vat Tender Name Role Phone Jamshid Cornejo DO Unavailable [phone] Marcus Malik MD Primary Care Provider [phone] Allergies Active Allergy Reactions Criticality Noted Date Comments Benzonatate Unknown 10/29/2018 Povidone-Iodine Unknown 10/29/2018 Medications ONETOUCH ULTRA BLUE TEST STRIP strip Active SYNJARDY XR 12.5-1,000 mg tablet, IR & ER, biphasic 24hr Active FLUARIX QUAD 3628-9526, PF, 60 mcg (15 mcg x 4)/0.5 mL syringe ADM 0.5ML IM UTD 0 Active rosuvastatin (CRESTOR) 20 mg tablet 018 [...] IBUPROFEN ORAL 11/21/2017Ibuprofen, po solid 800 mg [id number] PRN painCurrent Medication Active biotin 5 mg [...] 11/07/2009:Stage IA(cT1c, cN0(sn), cM0, G3, ER: Positive, HI: Positive, HER2: Positive) - Signed by Jamshid Cornejo DO on 11/07/2018 Immunizations Immunization Administration Dates Next Due Influenza, Quadrivalent, Iesha l Culture-based MDCK, Antibiotic Free, Intramuscular 09/19/2020 Influenza, Quadrivalent, Spl it, Preservative Free, Intramuscular 08/24/2018 Influenza, Unspecified 08/24/2018,2016,11/09/2015,05/02,11/01/2013 Social History Tobacco Use Types Packs/Day Years [...] on file Legal Sex Female 3:26 AM NURSING PROJECT COORDINATOR Gender Identity Not on file Sexual Orientation Not on file Last Filed Vital Signs Vital Sign Reading Time Taken Comments Blood Pressure 138/89 10/12/2020 1:44 PM NURSING PROJECT COORDINATOR Pulse 112 10/12/2020 1:44 PM NURSING PROJECT COORDINATOR Temperature 36.7 C (98 F) 10/12/2020 1:44 PM NURSING PROJECT COORDINATOR Respiratory Rate 20 10/12/2020 1:44 PM NURSING PROJECT COORDINATOR Oxygen Saturation 97% 10/12/2020 1:44 PM NURSING PROJECT COORDINATOR Inhaled Oxygen Concentration - - Weight 106.1 kg (234 lb) 10/12/2020 1:44 PM NURSING PROJECT COORDINATOR with shoes Height 167.6 cm (5' 6 ) 10/12/2020 1:44 PM NURSING PROJECT COORDINATOR Body Mass Index 37.77 10/12/2020 1:44 PM NURSING PROJECT COORDINATOR Plan of Treatment Not on file Insurance AETNA AETNA [facility] [id number] COMMERCIAL GENERIC Care Teams Warp Bleaching Vat Tender Relationship Specialty Start Date End Date Marcus Malik MD [address] [place] [address] [id number] PCP - General Family Medicine 10/29/18 Jamshid Cornejo DO [address] [place] [id number] Medical Oncologist/Dust Mop Maker Hematology and Oncology 10/28/18
== END 2025-01-27 15:37 | disposition home or self-care (01) ==
PROVIDERS: PCP Family Medicine; Visit Provider Obstetrics & Gynecology
DX: Z12.31 Encounter for screening mammogram for malignant neoplasm of breast (principal)
CPT/HCPCS: 77063; 77067